=== PATIENT | female | born 1955 | race Caucasian/White ===

== ENCOUNTER → 2018-07-25 08:14 | Outpatient (CLI) | payer OTHER, SELFPAY ==
--- NOTE | 2018-07-25 | DI.US.S_ITS ---
PROCEDURE: US SOFT TISSUE HEAD AND NECK INDICATIONS: Localized swelling, mass and lump, trunk TECHNIQUE: Real-time scanning was performed of the neck region of interest, with image documentation. COMPARISON: None. FINDINGS: Through the lower posterior neck a discrete cystic or solid mass can not be seen. Fatty tissue is present in this area, and the ultrasound study does not contact boundaries that would indicate lipoma as the underlying cause. MR scanning may be warranted. IMPRESSION: Normal fatty soft tissue seen in the area current clinical concern. Please note that ultrasound detection of a focal lipoma is quite limited when compared to a sharper demarcation of subtle tissue boundaries by MR scanning with contrast. If clinically desired followup contrast enhanced soft tissue MR in this area could be obtained. Dictated by: Dillon Cerrato M.D. on 07/25/2018 at 9:55 Approved by: Dillon Cerrato M.D. on 07/25/2018 at 9:57
[2018-07-25 09:50] LABS: Hemoglobin A1C% w Est Avg Glu 5.8 % (4.0-6.0)
[2018-07-25 10:24] LABS: Cholesterol 258 mg/dL (140-199); HDL Cholesterol 54 mg/dL (40-60); LDL Cholesterol Calculated 182 mg/dL (<100); Triglycerides 112 mg/dL (35-150)
[2018-07-25 11:15] LABS: Hep C Virus Ab w/Reflex Quant NEGATIVE s/c (NEGATIVE)
== END ==
PROVIDERS: PCP Family Medicine; Visit Provider Family Medicine
DX: Z00.00 Encounter for general adult medical examination without abnormal findings (principal); R22.2 Localized swelling, mass and lump, trunk
CPT/HCPCS: 36415; 76536; 80061; 83036; 86803

== ENCOUNTER → 2018-09-03 11:57 | Outpatient (CLI) | payer OTHER, SELFPAY ==
--- NOTE | 2018-09-03 | DI.MG.S_ITS ---
BILATERAL DIGITAL SCREENING MAMMOGRAM 3D/2D WITH CAD: 09/03/2018 CLINICAL: Routine screening. Comparison is made to exams dated: 12/22/2014 mammogram - [facility], 02/28/2012 mammogram, and 02/08/2011 mammogram - [facility]. There are scattered fibroglandular elements in both breasts. Current study was also evaluated with a Computer Aided Detection (CAD) system. No significant masses, calcifications, or other findings are seen in either breast. There has been no significant interval change. IMPRESSION: NEGATIVE There is no mammographic evidence of malignancy. A 1 year screening mammogram is recommended. This exam was interpreted at Station ID: [id number]. NOTE: For mammograms, a report in lay terms will be sent to the patient. Approximately 15% of breast malignancies will not be visualized mammographically. In the management of a palpable breast mass, a negative mammogram must not discourage biopsy of a clinically suspicious lesion. Electronically Signed By: Zheng luther/levon:09/04/2018 12:46:10 letter sent: Normal Exam ACR BI-RADS Category 1: Negative 3341F
== END ==
PROVIDERS: PCP Family Medicine; Visit Provider Family Medicine
DX: Z12.31 Encounter for screening mammogram for malignant neoplasm of breast (principal)
CPT/HCPCS: 77063; 77067

== ENCOUNTER → 2018-09-24 15:51 | Outpatient (CLI) | payer OTHER, SELFPAY ==
[2018-09-24 16:51] LABS: Blood Urea Nitrogen 12 mg/dL (7-17); Estimated Glomerular Filt Rate > 60.0 mL/min (>60)
== END ==
PROVIDERS: PCP Family Medicine; Visit Provider Family Medicine
DX: R22.2 Localized swelling, mass and lump, trunk (principal)
CPT/HCPCS: 36415; 82565; 84520

== ENCOUNTER → 2018-10-01 11:10 | Outpatient (CLI) | payer OTHER, SELFPAY ==
--- NOTE | 2018-10-01 | DI.MRI.S_ITS ---
PROCEDURE: MR ORBITS FACE NECK WO/W CON INDICATIONS: Localized swelling, mass and lump, trunk TECHNIQUE: Sagittal/axial/coronal T1 spin echo and STIR. After the administration of contrast, axial/coronal/sagittal T1 fast spin echo with fat saturation through the neck. COMPARISON: [facility], MR, C-SPINE WITHOUT CONTRAST, 09/15/2016, 14:26. [facility], US, US SOFT TISSUE HEAD AND NECK, 07/25/2018, 8:36. FINDINGS: Image quality: Diagnostic, with note made of motion artifact. Lymph nodes: No enlarged nodes are seen throughout the neck. Vessels: Visualized vasculature appears normal, with normal flow voids and enhancement. Neck spaces: A marker is placed upon the area of clinical concern involving the left posterior neck inferiorly. Deep to this marker, no encapsulated lipoma can be seen. No masses or abnormal enhancement can be seen at this site or elsewhere. The oropharynx, nasopharynx and pharynx are unremarkable, without mucosal lesions seen. Vocal cords, false vocal cords, pyriform sinuses, epiglottis, vallecula, and tongue base all appear normal. Glands: The parotid and submandibular glands appear normal. Thyroid gland demonstrates no significant MRI abnormality. Miscellaneous: Visualized brain and orbits appear normal. Lung apices appear clear. Superficial soft tissues appear normal. Visualized sinuses and mastoids appear clear. Bones: Marrow has normal overall signal. There is reversal of the normal cervical lordosis. The changes are seen, including apparent fusion of the C4-C5 level with moderate to severe disc space narrowing at C5-C6. IMPRESSION: No lipomas or masses can be seen at the area of clinical concern. No abnormal enhancement. Cervical spine degenerative changes are seen, which are most prominent inferiorly. Dictated by: Rodrick Kemp M.D. on 10/01/2018 at 13:06 Approved by: Rodrick Kemp M.D. on 10/01/2018 at 13:10
== END ==
PROVIDERS: PCP Family Medicine; Visit Provider Family Medicine
DX: R22.2 Localized swelling, mass and lump, trunk (principal); M47.812 Spondylosis without myelopathy or radiculopathy, cervical region
CPT/HCPCS: 70543; A9579

== ENCOUNTER → 2019-07-15 11:41 | Outpatient (CLI) | payer OTHER, SELFPAY ==
[2019-07-15 12:31] LABS: Hemoglobin A1C% w Est Avg Glu 5.4 % (4.0-6.0)
[2019-07-15 14:19] LABS: Cholesterol 324 mg/dL (140-199); HDL Cholesterol 64 mg/dL (40-60); LDL Cholesterol Calculated 222 mg/dL (<100); Triglycerides 192 mg/dL (35-150)
== END ==
PROVIDERS: PCP Family Medicine; Visit Provider Family Medicine
DX: E78.5 Hyperlipidemia, unspecified (principal)
CPT/HCPCS: 36415; 80061; 83036

== ENCOUNTER 2019-09-06 13:45 | Outpatient (RCR) | payer OTHER, SELFPAY ==
--- NOTE | 2019-08-14 14:05 | PT.OIE ---
Current Diagnoses Urge incontinence (08/14/19) Visit Care Team Role Provider Type Jonas Tyson MD Attending Provider Non-Staff Primary Care Provider Specialty: [facility] Address: [address] [place] [address], [id number] Email: Physical Therapy Initial Evaluation PT-OP-A Visit Information Start: 08/14/19 07:29 Freq: Status: Active Protocol: Document 08/14/19 07:30 AMB (Rec: 08/16/19 14:05 AMB [email or web address]) Out-Patient Physical Therapy Visit Information Visit Information Visit Type Initial Evaluation Visit Start Time 07:30 Visit Stop Time 08:15 Total Visit Minutes 45 Visit Number 1 PT-OP-B Current Condition Start: 08/14/19 07:29 Freq: Status: Active Protocol: Document 08/14/19 07:30 AMB (Rec: 08/16/19 14:05 AMB [email or web address]) Current Condition History of Current Condition Onset Date 2 years ago Current Complaints urge incontinence History of Current Condition Eli has had 3 vaginal deliveries and remembers tearing with her first child. She does not recall any leaking around the time of or delivery. She started having stress incontinence in her 40s and did go to pelvic floor physical therapy, but did not keep up with her exercises. The surgery was very successful for her. She had a hysterectomy and oophorectomy in her 50s secondary to cervical cancer. She just started having urge incontinence about 2 years ago , and it has been worsening since. She notices her big trigger is getting our of her car when she is at home. She can leak quite a lot and the urgency is strong at that moment. Walking by the toilet can also cause urgency. She also does have urinary frequency, going every hour during the day, and drinks, she thinks only 21 oz of water , and 16 oz of coffee and 1 serving of alcohol per day. Prior Functional Status Baseline Function- ADL's Independent Baseline Function- Mobility Independent Current Functional Impairments (Reported) Functional Limitations- ADL's urinary frequency and urgency, does not report sx of stress incontinence Personal Factors Other Personal Factors That May Effect history of stress incontinence Therapy/Recovery with bladder sling, history of hysterectomy and removal of cervix. PT-OP-C Subjective Start: 08/14/19 07:29 Freq: Status: Active Protocol: Document 08/14/19 07:30 AMB (Rec: 08/16/19 14:05 AMB [email or web address]) Patient Questionnaires Pelvic Pain and Urgency/Frequency Patient Symptom Scale Pelvic Pain Score 13 PT-OP-I Pelvic Floor Start: 08/14/19 07:29 Freq: Status: Active Protocol: Document 08/14/19 07:30 AMB (Rec: 08/16/19 14:05 AMB [email or web address]) Pelvic Floor Assessment Urine Pelvic Floor Surgery Yes: bladder sling and prior hysterectomy Urinary Symptoms Urge Sensation Leakage Size Large Other Leakage Causes trigger (getting out of car, sit to stand throughout the day does not make her leak) Leaks Per Day 3-5 Voiding Frequency every hour Nocturia 1 Pelvic Clock Pelvic Clock Other no tenderness or tightness with assessment Prolapse Prolapse Comments no prolapse visible, but pt did have a difficult time bearing down. Contraction Ability Voluntary Contraction Weak Voluntary Relaxation Moderate Manual Muscle Testing Left 1 Manual Muscle Testing Right 1 Manual Muscle Testing Anterior 1 Manual Muscle Testing Posterior 2 Muscle Endurance (Seconds) 2 Number of Quick Contractions In 10 3 Seconds PT-OP-T Assessment and Plan Start: 08/14/19 07:29 Freq: Status: Active Protocol: Document 08/14/19 07:30 AMB (Rec: 08/16/19 14:05 AMB [email or web address]) Physical Therapy Assessment Rehab Potential Rehabilitation Potential Good Evaluation Complexity Number of Personal Factors/Comorbidities 1-2 Number of Body Systems Impaired 1-2 Clinical Presentation at Evaluation Stable Impairments Impairments Strength Goals Two Impairment pelvic floor strength Short Term Goal (STG) Eli will improve her pelvic floor strength so that she can perform 10 quick Kegels in standing without compensating with her abdominals to reduce her urgency. STG Duration 4 weeks Peritoneal Dialysis Registered Nurse Goal (LTG) Eli will improve her pelvic floor strength so that she can contract her pelvic floor while she is moving from sit to stand. LTG Duration 8 weeks One Impairment continence Short Term Goal (STG) Eli will decrease her urinary frequency to every 2 hours. STG Duration 4 weeks Peritoneal Dialysis Registered Nurse Goal (LTG) Eli will get out of her car without leaking. LTG Duration 8 weeks Assessment Summary Assessment Eli attends PT with urge incontinence and frequency. She also does have a weak pelvic floor, and poor bladder habits (not drinking enough clear fluid). She will benefit from PT for both pelvic floor strengthening and instruction in urge reduction techniques and good bladder habits. Physical Therapy Plan Frequency and Duration Frequency of Treatment 1x/Week Duration of Treatment 8 weeks Plan of Care Start Date 08/14/19 Plan of Care End Date 10/09/19 Therapeutic Interventions Therapeutic Interventions Home Exercise Program,Manual Therapy,Neuromuscular Re- education,Therapeutic Activities,Therapeutic Exercises Modalities Biofeedback,Electric Stimulation Next Visit Focus/Plan Next Note Type Treatment Note Next Visit Plan continue behavioral urge reduction techniques, consider sEMG
--- NOTE | 2019-08-20 09:46 | PT.OTN ---
Current Diagnoses Urge incontinence (08/20/19) Physical Therapy Treatment Note PT-OP-A Visit Information Start: 08/14/19 07:29 Freq: Status: Active Protocol: Document 08/20/19 07:30 AMB (Rec: 08/20/19 09:46 AMB [email or web address]) Out-Patient Physical Therapy Visit Information Visit Information Visit Type Treatment Note Visit Start Time 07:30 Visit Stop Time 08:15 Total Visit Minutes 45 Visit Number 2 PT-OP-B Current Condition Start: 08/14/19 07:29 Freq: Status: Active Protocol: Document 08/14/19 07:30 AMB (Rec: 08/16/19 14:05 AMB [email or web address]) Current Condition History of Current Condition Onset Date 2 years ago Current Complaints urge incontinence History of Current Condition Eli has had 3 vaginal deliveries and remembers tearing with her first child. She does not recall any leaking around the time of or delivery. She started having stress incontinence in her 40s and did go to pelvic floor physical therapy, but did not keep up with her exercises. The surgery was very successful for her. She had a hysterectomy and oophorectomy in her 50s secondary to cervical cancer. She just started having urge incontinence about 2 years ago , and it has been worsening since. She notices her big trigger is getting our of her car when she is at home. She can leak quite a lot and the urgency is strong at that moment. Walking by the toilet can also cause urgency. She also does have urinary frequency, going every hour during the day, and drinks, she thinks only 21 oz of water , and 16 oz of coffee and 1 serving of alcohol per day. Prior Functional Status Baseline Function- ADL's Independent Baseline Function- Mobility Independent Current Functional Impairments (Reported) Functional Limitations- ADL's urinary frequency and urgency, does not report sx of stress incontinence Personal Factors Other Personal Factors That May Effect history of stress incontinence Therapy/Recovery with bladder sling, history of hysterectomy and removal of cervix. PT-OP-C Subjective Start: 08/14/19 07:29 Freq: Status: Active Protocol: Document 08/20/19 07:30 AMB (Rec: 08/20/19 09:46 AMB [email or web address]) OP-PT Subjective Patient Comments Patient Comments Pt states she has not had any leaking with getting out of the car. The urge is still there, but it is slightly better. She is still having an issue with getting out of bed in the morning, but she has been doing her pelvic floor exercises in the morning and evening and that has been helping. PT-OP-I Pelvic Floor Start: 08/14/19 07:29 Freq: Status: Active Protocol: Document 08/14/19 07:30 AMB (Rec: 08/16/19 14:05 AMB [email or web address]) Pelvic Floor Assessment Urine Pelvic Floor Surgery Yes: bladder sling and prior hysterectomy Urinary Symptoms Urge Sensation Leakage Size Large Other Leakage Causes trigger (getting out of car, sit to stand throughout the day does not make her leak) Leaks Per Day 3-5 Voiding Frequency every hour Nocturia 1 Pelvic Clock Pelvic Clock Other no tenderness or tightness with assessment Prolapse Prolapse Comments no prolapse visible, but pt did have a difficult time bearing down. Contraction Ability Voluntary Contraction Weak Voluntary Relaxation Moderate Manual Muscle Testing Left 1 Manual Muscle Testing Right 1 Manual Muscle Testing Anterior 1 Manual Muscle Testing Posterior 2 Muscle Endurance (Seconds) 2 Number of Quick Contractions In 10 3 Seconds PT-OP-Q Treatments Start: 08/14/19 07:29 Freq: Status: Active Protocol: Document 08/20/19 07:30 AMB (Rec: 08/20/19 09:46 AMB [email or web address]) Therapeutic Exercises Supine Exercises 1 Supine Exercise Name roll in roll out Reps/Minutes 2x10 with PF throughout Comments ball, #2 band Neuro Re-Education Treatment Other Activities 1 Details sEMG Comments quick flicks and long holds, resting baseline started at 5, got down to 3. Max 14, but only for quick flicks, able to maintain 6 for long holds. PT-OP-T Assessment and Plan Start: 08/14/19 07:29 Freq: Status: Active Protocol: Document 08/20/19 07:30 AMB (Rec: 08/20/19 09:46 AMB [email or web address]) Physical Therapy Assessment Assessment Summary Assessment Eli has improved well with her urge reduction techniques. She is having difficulty with maintaining a pelvic floor contraction for any amount of time though, so we will need to continue to work on this. Physical Therapy Plan Next Visit Focus/Plan Next Note Type Treatment Note Next Visit Plan continue behavioral urge reduction techniques, consider sEMG
--- NOTE | 2019-09-06 16:15 | PT.OTN ---
Current Diagnoses Urge incontinence (09/06/19) Physical Therapy Treatment Note PT-OP-A Visit Information Start: 08/14/19 07:29 Freq: Status: Active Protocol: Document 09/06/19 13:45 AMB (Rec: 09/06/19 14:40 AMB [id number]) Out-Patient Physical Therapy Visit Information Visit Information Visit Type Treatment Note Visit Start Time 13:45 Visit Stop Time 14:30 Total Visit Minutes 45 Visit Number 3 PT-OP-B Current Condition Start: 08/14/19 07:29 Freq: Status: Active Protocol: Document 08/14/19 07:30 AMB (Rec: 08/16/19 14:05 AMB [email or web address]) Current Condition History of Current Condition Onset Date 2 years ago Current Complaints urge incontinence History of Current Condition Eli has had 3 vaginal deliveries and remembers tearing with her first child. She does not recall any leaking around the time of or delivery. She started having stress incontinence in her 40s and did go to pelvic floor physical therapy, but did not keep up with her exercises. The surgery was very successful for her. She had a hysterectomy and oophorectomy in her 50s secondary to cervical cancer. She just started having urge incontinence about 2 years ago , and it has been worsening since. She notices her big trigger is getting our of her car when she is at home. She can leak quite a lot and the urgency is strong at that moment. Walking by the toilet can also cause urgency. She also does have urinary frequency, going every hour during the day, and drinks, she thinks only 21 oz of water , and 16 oz of coffee and 1 serving of alcohol per day. Prior Functional Status Baseline Function- ADL's Independent Baseline Function- Mobility Independent Current Functional Impairments (Reported) Functional Limitations- ADL's urinary frequency and urgency, does not report sx of stress incontinence Personal Factors Other Personal Factors That May Effect history of stress incontinence Therapy/Recovery with bladder sling, history of hysterectomy and removal of cervix. PT-OP-C Subjective Start: 08/14/19 07:29 Freq: Status: Active Protocol: Document 09/06/19 13:45 AMB (Rec: 09/06/19 14:40 AMB [id number]) OP-PT Subjective Patient Comments Patient Comments Pt states she traveled to [place] and didn't have any urgency. She has had some urgency getting out of the car , but no large leaks. PT-OP-I Pelvic Floor Start: 08/14/19 07:29 Freq: Status: Active Protocol: Document 08/14/19 07:30 AMB (Rec: 08/16/19 14:05 AMB [email or web address]) Pelvic Floor Assessment Urine Pelvic Floor Surgery Yes: bladder sling and prior hysterectomy Urinary Symptoms Urge Sensation Leakage Size Large Other Leakage Causes trigger (getting out of car, sit to stand throughout the day does not make her leak) Leaks Per Day 3-5 Voiding Frequency every hour Nocturia 1 Pelvic Clock Pelvic Clock Other no tenderness or tightness with assessment Prolapse Prolapse Comments no prolapse visible, but pt did have a difficult time bearing down. Contraction Ability Voluntary Contraction Weak Voluntary Relaxation Moderate Manual Muscle Testing Left 1 Manual Muscle Testing Right 1 Manual Muscle Testing Anterior 1 Manual Muscle Testing Posterior 2 Muscle Endurance (Seconds) 2 Number of Quick Contractions In 10 3 Seconds PT-OP-Q Treatments Start: 08/14/19 07:29 Freq: Status: Active Protocol: Document 09/06/19 13:45 AMB (Rec: 09/06/19 14:40 AMB [id number]) Therapeutic Exercises Supine Exercises 1 Supine Exercise Name roll in roll out Reps/Minutes 2x10 with PF throughout Comments ball, #2 band Neuro Re-Education Treatment Other Activities 1 Details sEMG Comments quick flicks and long holds, resting baseline 3. Able to contract for a short period of time, but then fatigues quickly, better with longer rests between sessions. PT-OP-T Assessment and Plan Start: 08/14/19 07:29 Freq: Status: Active Protocol: Document 09/06/19 13:45 AMB (Rec: 09/06/19 14:40 AMB [id number]) Physical Therapy Assessment Assessment Summary Assessment Eli continues to have difficulty maintainig a contraction more than 2-3 seconds, but her urge reduction in helping with her leaking. Physical Therapy Plan Next Visit Focus/Plan Next Note Type Treatment Note Next Visit Plan continue behavioral urge reduction techniques, consider sEMG
--- NOTE | 2019-11-20 16:18 | PT.OPDS ---
Current Diagnoses Urge incontinence (09/06/19) Visit Care Team Role Provider Type Jonas Tyson MD Attending Provider Non-Staff Primary Care Provider Specialty: [facility] Address: [address] [place] [address], [id number] Email: Visit Number Visit Number 3 Discharge Summary PT-OP-B Current Condition Start: 08/14/19 07:29 Freq: Status: Active Protocol: Document 08/14/19 07:30 AMB (Rec: 08/16/19 14:05 AMB [email or web address]) Current Condition History of Current Condition Onset Date 2 years ago Current Complaints urge incontinence History of Current Condition Eli has had 3 vaginal deliveries and remembers tearing with her first child. She does not recall any leaking around the time of or delivery. She started having stress incontinence in her 40s and did go to pelvic floor physical therapy, but did not keep up with her exercises. The surgery was very successful for her. She had a hysterectomy and oophorectomy in her 50s secondary to cervical cancer. She just started having urge incontinence about 2 years ago , and it has been worsening since. She notices her big trigger is getting our of her car when she is at home. She can leak quite a lot and the urgency is strong at that moment. Walking by the toilet can also cause urgency. She also does have urinary frequency, going every hour during the day, and drinks, she thinks only 21 oz of water , and 16 oz of coffee and 1 serving of alcohol per day. Prior Functional Status Baseline Function- ADL's Independent Baseline Function- Mobility Independent Current Functional Impairments (Reported) Functional Limitations- ADL's urinary frequency and urgency, does not report sx of stress incontinence Personal Factors Other Personal Factors That May Effect history of stress incontinence Therapy/Recovery with bladder sling, history of hysterectomy and removal of cervix. PT-OP-C Subjective Start: 08/14/19 07:29 Freq: Status: Active Protocol: Document 09/06/19 13:45 AMB (Rec: 09/06/19 14:40 AMB [id number]) OP-PT Subjective Patient Comments Patient Comments Pt states she traveled to [place] and didn't have any urgency. She has had some urgency getting out of the car , but no large leaks. PT-OP-I Pelvic Floor Start: 08/14/19 07:29 Freq: Status: Active Protocol: Document 08/14/19 07:30 AMB (Rec: 08/16/19 14:05 AMB [email or web address]) Pelvic Floor Assessment Urine Pelvic Floor Surgery Yes: bladder sling and prior hysterectomy Urinary Symptoms Urge Sensation Leakage Size Large Other Leakage Causes trigger (getting out of car, sit to stand throughout the day does not make her leak) Leaks Per Day 3-5 Voiding Frequency every hour Nocturia 1 Pelvic Clock Pelvic Clock Other no tenderness or tightness with assessment Prolapse Prolapse Comments no prolapse visible, but pt did have a difficult time bearing down. Contraction Ability Voluntary Contraction Weak Voluntary Relaxation Moderate Manual Muscle Testing Left 1 Manual Muscle Testing Right 1 Manual Muscle Testing Anterior 1 Manual Muscle Testing Posterior 2 Muscle Endurance (Seconds) 2 Number of Quick Contractions In 10 3 Seconds PT-OP-T Assessment and Plan Start: 08/14/19 07:29 Freq: Status: Active Protocol: Document 11/20/19 16:15 AMB (Rec: 11/20/19 16:18 AMB [email or web address]) Physical Therapy Assessment Assessment Summary Assessment Eli has not been seen in PT in the last 2 months. She cancelled her last remaining PT appointment. At the time of her last visit, her urge incontinence was signficantly improved, but she continued to have weakness in her pelvic floor.
== END 2019-11-22 08:19 ==
LOC: PHYS 13:45
PROVIDERS: PCP Family Medicine; Visit Provider Family Medicine
DX: N39.41 Urge incontinence (principal)
CPT/HCPCS: 97110; 97112; 97161

== ENCOUNTER → 2020-04-25 12:32 | Outpatient (CLI) | payer OTHER, SELFPAY ==
[2020-04-25 13:47] LABS: Cholesterol 204 mg/dL (140-199); HDL Cholesterol 71 mg/dL (40-60); LDL Cholesterol Calculated 110 mg/dL (<100); Triglycerides 113 mg/dL (35-150)
== END ==
PROVIDERS: PCP Family Medicine; Referring Provider Family Medicine; Visit Provider Family Medicine
DX: E78.5 Hyperlipidemia, unspecified (principal)
CPT/HCPCS: 36415; 80061

== ENCOUNTER → 2020-08-22 15:22 | Outpatient (CLI) | payer OTHER, SELFPAY ==
[2020-08-22 16:29] LABS: COVID19 -Nasal RAPID Negative (Negative)
== END ==
PROVIDERS: PCP Family Medicine; Visit Provider Physician Assistant
DX: Z11.59 Encounter for screening for other viral diseases (principal)
CPT/HCPCS: 87635

== ENCOUNTER → 2021-08-10 08:02 | Outpatient (CLI) | payer OTHER, SELFPAY ==
--- NOTE | 2021-08-10 | DI.MG.S_ITS ---
BILATERAL DIGITAL SCREENING MAMMOGRAM 3D/2D WITH CAD: 08/10/2021 CLINICAL: Routine screening. Comparison is made to exams dated: 09/03/2018 mammogram, 12/22/2014 mammogram - [facility], and 02/28/2012 mammogram - [facility]. There are scattered fibroglandular elements in both breasts. Current study was also evaluated with a Computer Aided Detection (CAD) system. No significant masses, calcifications, or other findings are seen in either breast. There has been no significant interval change. IMPRESSION: NEGATIVE There is no mammographic evidence of malignancy. A 1 year screening mammogram is recommended. This exam was interpreted at Station ID: [id number]. NOTE: For mammograms, a report in lay terms will be sent to the patient. Approximately 15% of breast malignancies will not be visualized mammographically. In the management of a palpable breast mass, a negative mammogram must not discourage biopsy of a clinically suspicious lesion. Electronically Signed By: Melissa pike/levon:08/10/2021 11:21:14 letter sent: Normal Exam ACR BI-RADS Category 1: Negative [id number]
== END ==
PROVIDERS: PCP Family Medicine; Referring Provider Family Medicine; Visit Provider Family Medicine
DX: Z12.31 Encounter for screening mammogram for malignant neoplasm of breast (principal)
CPT/HCPCS: 77063; 77067

== ENCOUNTER → 2021-08-14 11:18 | Outpatient (CLI) | payer OTHER, SELFPAY ==
--- NOTE | 2021-08-14 | DI.MRI.S_ITS ---
PROCEDURE: MR LUMBAR SPINE WO CON INDICATIONS: Spinal stenosis, cervical region TECHNIQUE: Noncontrast sagittal T1 spin echo and T2 fast echo, sagittal STIR, axial T1 and T2 fast spin echo through the lumbar spine. In cases with scoliosis, additional coronal T2 fast spin echo may be performed. COMPARISON: [facility], MR, L-SPINE WITHOUT CONTRAST, 09/15/2016, 14:55. FINDINGS: Image quality: Excellent. Alignment and Curvature: Mild degenerative anterolisthesis of L5 on S1 measuring 6 mm. Mild degenerative anterolisthesis of L4 on L5 measuring 7 mm. Bone Marrow: Marrow is of normal overall signal. No acute vertebral body compression fractures. Spinal Cord: Conus medullaris terminates at the L1-L2 level. Visualized cord demonstrates normal signal and size. Paraspinous Soft Tissues: No paravertebral masses. T12-L1: No canal stenosis or foraminal stenosis. L1-L2: Diffuse disc bulge. Mild facet hypertrophy. No central canal stenosis. Moderate bilateral foraminal stenosis with mild flattening deformity on the exiting bilateral L1 nerve roots. L2-L3: Moderate to severe chronic disc height loss. Diffuse posterior disc post osteophyte. Facet hypertrophy. No significant central canal stenosis. [id number] bilateral foraminal stenosis. L3-L4: Severe disc height loss and possible interbody fusion. Mild posterior osteophyte. Facet hypertrophy. Borderline canal stenosis. Moderate bilateral foraminal narrowing with mild flattening deformity on the exiting bilateral L3 nerve roots. L4-L5: Marked facet and ligament hypertrophy. Degenerative anterolisthesis of L4 on L5 with posterior disc bulge. Severe canal stenosis. Marked lateral recess stenosis bilaterally. Moderate to severe bilateral foraminal stenosis with flattening deformity on the exiting bilateral L4 nerve roots. L5-S1: Severe bilateral facet hypertrophy with mild anterolisthesis of L5 on S1. Mild to moderate central posterior disc protrusion mildly displacing the bilateral S1 nerve roots in the lateral recesses. Moderate central canal stenosis. Moderate to severe right foraminal narrowing and moderate left foraminal narrowing with flattening deformity on the exiting bilateral L5 nerve roots. IMPRESSION: 1. Extensive degenerative change with multilevel facet arthropathy, with marked facet hypertrophy at L4-L5 and severe facet hypertrophy at L5-S1 2. Multilevel canal stenosis, borderline at L3-L4, severe at L4-L5, and moderate at L5-S1. At L4-L5 there is also marked bilateral lateral recess stenosis. 3. Multilevel foraminal narrowing as described above. Dictated by: Julio Cesar Velasquez M.D. on 08/16/2021 at 9:04 Approved by: Julio Cesar Velasquez M.D. on 08/16/2021 at 9:28
--- NOTE | 2021-08-14 | DI.MRI.S_ITS ---
PROCEDURE: MR CERVICAL SPINE WO CON INDICATIONS: Spinal stenosis, cervical region TECHNIQUE: Noncontrast sagittal T1 spin echo and T2 fast spin echo, sagittal STIR, foraminal oblique sagittal T2 fast spin echo, and axial gradient echo or T2 fast spin echo through the cervical spine. COMPARISON: [facility], MR, CERVICAL SPINE W/O CONTRAST, 09/15/2014, 14:01. [facility], MR, C-SPINE WITHOUT CONTRAST, 09/15/2016, 14:26. FINDINGS: Image quality: Excellent. Alignment and Curvature: Severe cervical spondylosis. Interbody fusion, possibly an auto fusion at C4-C5. Mild degenerative anterolisthesis of C2 on C3 measures approximately 3 mm. Mild degenerative anterolisthesis of C3 on C4 measures approximately 3 mm. Trace degenerative retrolisthesis of C5 on C6. Trace degenerative retrolisthesis of C6 on C7. Bone Marrow: Marrow demonstrates normal overall signal. Spinal Cord: Visualized spinal cord has normal size and signal. No cerebellar tonsillar herniation. Paraspinous Soft Tissues: No paravertebral masses. Prevertebral soft tissues are normal in thickness. C2-C3: Mild anterolisthesis of C2 on C3. AP diameter of the canal is 9.5 mm. Bilateral facet hypertrophy, impressive on the left. Moderate to severe left foraminal narrowing with a degree of impingement on the exiting left C3 nerve root. C3-C4: Mild anterolisthesis of C3 on C4. Posterior disc osteophyte complex with indentation on the ventral cord. AP diameter of the canal is 1.2 cm. Prominent bilateral facet hypertrophy. Moderate to severe right and severe left foraminal narrowing with impingement on the bilateral exiting C4 nerve roots. C4-C5: Interbody fusion, possibly auto fusion. Posterior osteophyte indents on the ventral cord. AP diameter of the canal is 9.9 mm. Bilateral facet hypertrophy, right greater than left. [id number] right foraminal narrowing. Moderate left foraminal narrowing with flattening deformity on the exiting left C5 nerve root. C5-C6: Severe disc height loss. Mild retrolisthesis of C5 on C6. Diffuse broad-based posterior disc plus osteophyte. Posterior ligamentous hypertrophy. AP diameter of the canal is 8.1 mm. Bilateral uncovertebral joint hypertrophy. Bilateral facet hypertrophy. Bilateral moderate to severe foraminal narrowing with a degree of impingement on the exiting bilateral C6 nerve roots. C6-C7: Moderate to severe disc height loss. Diffuse posterior disc plus osteophyte. AP diameter of the canal is 7.7 mm. Bilateral uncovertebral joint hypertrophy. Bilateral facet hypertrophy. Moderate to severe right and severe left foraminal narrowing with impingement on the exiting bilateral C7 nerve roots. C7-T1: No canal stenosis. Mild bilateral foraminal stenosis. IMPRESSION: 1. Severe diffuse cervical spondylitic change with multilevel facet arthropathy and uncovertebral joint hypertrophy. 2. Multilevel canal stenosis, mild at C4-C5, moderate to severe at C5-C6, and severe at C6-C7. 3. Significant multilevel foraminal narrowing as described above. Dictated by: Julio Cesar Velasquez M.D. on 08/16/2021 at 8:46 Approved by: Julio Cesar Velasquez M.D. on 08/16/2021 at 9:04
== END ==
PROVIDERS: PCP Family Medicine; Referring Provider Family Medicine; Visit Provider Family Medicine
DX: M48.02 Spinal stenosis, cervical region (principal); M47.812 Spondylosis without myelopathy or radiculopathy, cervical region; M47.816 Spondylosis without myelopathy or radiculopathy, lumbar region; M47.817 Spondylosis without myelopathy or radiculopathy, lumbosacral region; M48.061 Spinal stenosis, lumbar region without neurogenic claudication; M48.07 Spinal stenosis, lumbosacral region; G83.10 Monoplegia of lower limb affecting unspecified side; Z98.1 Arthrodesis status
CPT/HCPCS: 72141; 72148

== ENCOUNTER → 2022-02-17 13:24 | Outpatient (CLI) | payer OTHER, SELFPAY ==
--- NOTE | 2022-02-17 | DI.RAD.S_ITS ---
PROCEDURE: XR KNEE LT 3V INDICATIONS: Unilateral primary osteoarthritis, left knee TECHNIQUE : 4 views of the knee were acquired. COMPARISON: None. FINDINGS: Bones: No fractures or dislocations. Moderate to severe medial femoral tibial compartment osteoarthritic changes are seen. No suspicious bony lesions. Soft tissues: Small suprapatellar joint effusion.. No suspicious soft tissue calcifications. IMPRESSION: Moderate to severe left medial femoral tibial compartment osteoarthritis. No fracture or dislocation. Small joint effusion. Dictated by: Stalin Bedolla M.D. on 02/17/2022 at 15:24 Approved by: Stalin Bedolla M.D. on 02/17/2022 at 15:29
--- NOTE | 2022-02-17 | DI.RAD.S_ITS ---
PROCEDURE: XR KNEE RT 3V INDICATIONS: Unilateral primary osteoarthritis, left knee TECHNIQUE: 4 views of the knee were acquired. COMPARISON: None. FINDINGS: Bones: No fractures or dislocations. Severe left medial femoral tibial compartment osteoarthritis and moderate right medial femoral tibial compartment osteoarthritic changes are seen with joint space narrowing and subchondral sclerosis. No suspicious bony lesions. Soft tissues: Small right suprapatellar joint effusion is seen. No suspicious soft tissue calcifications. IMPRESSION: Left worse than right bilateral medial femoral tibial compartment osteoarthritis as above. Small right suprapatellar joint effusion. No fracture or dislocation. Dictated by: Stalin Bedolla M.D. on 02/17/2022 at 15:23 Approved by: Stalin Bedolla M.D. on 02/17/2022 at 15:23
== END ==
PROVIDERS: PCP Family Medicine; Referring Provider Family Medicine; Visit Provider Family Medicine
DX: M17.0 Bilateral primary osteoarthritis of knee (principal); M25.462 Effusion, left knee; M25.461 Effusion, right knee
CPT/HCPCS: 73562

== ENCOUNTER → 2022-09-26 14:45 | Outpatient (CLI) | payer OTHER, SELFPAY ==
[2022-09-26 18:57] LABS: BUN Creatinine Ratio 19.7 (6-22); Blood Urea Nitrogen 15 mg/dL (7-17); Calcium 8.9 mg/dL (8.4-10.2); Carbon Dioxide 28 mmol/L (22-32); Chloride 100 mmol/L (98-107); Cholesterol 263 mg/dL (140-199); Estimated Glomerular Filt Rate > 60 mL/min (>60); Glucose 73 mg/dL (80-110); HDL Cholesterol 65 mg/dL (40-60); HEMOLYSIS < 15 (0-50); LDL Cholesterol Calculated 142 mg/dL (<100); Potassium 4.1 mmol/L (3.4-5.1); Sodium 137 mmol/L (137-145); Triglycerides 282 mg/dL (35-150)
[2022-09-26 19:00] LABS: Hemoglobin A1C% w Est Avg Glu 5.5 % (4.0-6.0)
== END ==
PROVIDERS: PCP Family Medicine; Referring Provider Family Medicine; Visit Provider Family Medicine
DX: R03.0 Elevated blood-pressure reading, without diagnosis of hypertension (principal); E78.5 Hyperlipidemia, unspecified; E66.9 Obesity, unspecified
CPT/HCPCS: 36415; 80048; 80061; 83036

== ENCOUNTER → 2023-09-20 15:04 | Outpatient (CLI) | payer BC, SELFPAY ==
[2023-09-20 16:34] LABS: Hemoglobin A1C% w Est Avg Glu 5.5 % (4.0-6.0)
[2023-09-20 16:53] LABS: Alanine Aminotransferase 36 IU/L (<35); Albumin Globulin Ratio 1.4 (1.0-2.8); Alkaline Phosphatase 62 U/L (38-126); BUN Creatinine Ratio 16.9 (6-22); Bilirubin Total 0.6 mg/dL (0.2-1.3); Blood Urea Nitrogen 14 mg/dL (7-17); Calcium 9.5 mg/dL (8.4-10.2); Carbon Dioxide 28 mmol/L (22-32); Chloride 102 mmol/L (98-107); Cholesterol 207 mg/dL (140-199); Estimated Glomerular Filt Rate > 60 mL/min (>60); Globulin 2.9 g/dL (1.7-4.1); Glucose 86 mg/dL (80-110); HDL Cholesterol 60 mg/dL (40-60); HEMOLYSIS < 15 (0-50); LDL Cholesterol Calculated 120 mg/dL (<100); Potassium 3.7 mmol/L (3.4-5.1); Sodium 138 mmol/L (137-145); Total Protein 6.9 g/dL (6.3-8.2); Triglycerides 134 mg/dL (35-150)
[2023-09-22 17:14] LABS: Aspartate Aminotransferase 30 IU/L (14-36)
== END ==
LOC: LAB 15:07
PROVIDERS: PCP Family Medicine; Referring Provider Family Medicine; Visit Provider Family Medicine
DX: E78.5 Hyperlipidemia, unspecified (principal); E66.9 Obesity, unspecified
CPT/HCPCS: 36415; 80053; 80061; 83036

== ENCOUNTER → 2024-07-24 14:42 | Outpatient (CLI) | payer BC, SELFPAY ==
[2024-07-24 15:43] LABS: Cholesterol 251 mg/dL (140-199); HDL Cholesterol 68 mg/dL (40-60); LDL Cholesterol Calculated 141 mg/dL (<100); Triglycerides 209 mg/dL (35-150)
== END ==
PROVIDERS: PCP Family Medicine; Referring Provider Family Medicine; Visit Provider Family Medicine
DX: E78.5 Hyperlipidemia, unspecified (principal)
CPT/HCPCS: 36415; 80061

== ENCOUNTER → 2025-04-24 11:30 | Outpatient (CLI) | payer BC, SELFPAY ==
--- NOTE | 2025-04-24 11:31 | DI.MG.S_ITS ---
MM screening mammo BI: 04/24/2025. BI-RADS: 1 CLINICAL: 69-year old female for bilateral screening mammogram. Tyrer-Cuzick lifetime risk of 4.8%. No personal or first-degree family history of breast cancer. PRIOR EXAMS 08/10/2021, 09/03/2018, 12/22/2014. MAMMOGRAPHY TECHNIQUE: 2D and 3D (tomosynthesis) digital mammographic views obtained, with additional images as needed for full coverage. Current study was also evaluated with a Computer Aided Detection (CAD) system. DENSITY B. There are scattered areas of fibroglandular density. MAMMOGRAPHY FINDINGS Bilateral: No suspicious mass, asymmetry, microcalcification, or other abnormality seen. IMPRESSION: * No evidence of malignancy. RECOMMENDATIONS Bilateral * Annual screening mammography. OVERALL ASSESSMENT CATEGORY BI-RADS-1: Negative. [employer] recommends annual screening mammography beginning at age 40 for women with average risk of breast cancer. ELECTRONICALLY SIGNED: Kitty Booker M.D. on 04/24/2025 at 02:55:30 PM PT Interpreting Station ID: [id number]
== END ==
LOC: MAMMO 11:30
PROVIDERS: PCP Family Medicine; Referring Provider Family Medicine; Visit Provider Family Medicine
DX: Z12.31 Encounter for screening mammogram for malignant neoplasm of breast (principal)
CPT/HCPCS: 77063; 77067